=== PATIENT | female | born 1990 | race Asian ===

== ENCOUNTER 2018-10-08 10:37 | Emergency (ER) | payer SELFPAY ==
--- OUTSIDE RECORDS SUMMARY | 2018-10-08 10:43 | XMS REPORT ---
Author Author ALIX JUNIOR Organization [facility] Address [address] [place] [address] Care Team Providers Care Waiter/Waitress Cafeteria Name Role Phone ALIX JUNIOR Unavailable PROBLEMS Unknown Problems ALLERGIES Substance Reaction Event Type Date Status Penicillin V Potassium Unknown Drug Allergy Jan, Active ENCOUNTERS Encounter Location Date Diagnosis [place] [address] [address] Mar, [place] [address] [address] Mar, [place] [address] [address] Mar, test positive Z32.01 [place] [address] [place] [id number] [place] [address] 39489- 8210 14 Feb, 2017 Well woman exam Z01.419 and Encounter for Depo-Provera contraception Z30.42 [place] [address] [place] [id number] [place] [address] 40991- 1600 Jan, Acute midline low back pain without sciatica M54.5 and Fatigue, unspecified type R53.83 [facility] [address] [place] [address] [id number] [place] [address]38 -8736 15 Aug, 2016 Pharyngitis due to other organism J02.8 [place] [address] [place] [id number] [place] [address] 34452- 2361 02 Jun, 2016 Ocular contusion, right, initial encounter S05.11XA [place] [address] [place] [address] 36218- 4206 20 Mar, 2016 Nexplanon removal Z30.49 and Encounter for initial prescription of contraceptive pills Z30.011 IMMUNIZATIONS No Known Immunizations SOCIAL HISTORY Never Assessed REASON FOR VISIT Back/abdominal pain--DBennettRN, lower back and abd x1 month PLAN OF CARE Activity Details Follow Up needs WWE Reason: VITAL SIGNS Height 66 in 2017-02-16 Weight 172 lbs 2017-02-16 Temperature 98.8 degrees Fahrenheit 2017-02-16 Heart Rate 80 bpm 2017-02-16 Respiratory Rate 20 2017-02-16 BMI 27.76 kg/m2 2017-02-16 Blood pressure systolic 102 mmHg 2017-02-16 Blood pressure diastolic 64 mmHg 2017-02-16 MEDICATIONS No Known Medications RESULTS No Results PROCEDURES No Known procedures INSTRUCTIONS MEDICATIONS ADMINISTERED No Known Medications MEDICAL (GENERAL) HISTORY Type Description Date Medical History HSV-1 Surgical History tubal 2012 Surgical History Clef Palate repair 2 months of age Surgical History 2010 Hospitalization History Surgery Hospitalization History Mental Health Stay In [facility] 2011
--- OUTSIDE RECORDS SUMMARY | 2018-10-08 10:43 | XMS REPORT ---
Author Author IGLESIA BLANCAS [facility] Address Unknown Care Team Providers Care Humid System Operator Name Role Phone IGLESIA BLANCAS Unavailable PROBLEMS Unknown Problems ALLERGIES No Information ENCOUNTERS Encounter Location Date Diagnosis [facility] [address] [place] [id number] [place] [phone] Oct, [facility] [address] [id number] Oct, Dental examination Z01.20 [place] [address] [address]763 Oct, [facility] [address] [address]776[address]663 11 Mar, 2017 [facility] [address] [place] [id number] [place] [address] 36045- 9534 07 Mar, 2017 [place] [address] [address]99- 2325 06 Mar, 2017 test positive Z32.01 [place] [address] 05288- 6265 14 Feb, 2017 Well woman exam Z01.419 and Encounter for Depo-Provera contraception Z30.42 [facility] [address] [place] [id number] [place] [address] 55640- 4630 Jan, Acute midline low back pain without sciatica M54.5 and Fatigue, unspecified type R53.83 [facility] [id number] [place] [address] 70262 -7350 15 Aug, 2016 Pharyngitis due to other organism J02.8 [place] [address] [address]11- [address]674 Jun, Ocular contusion, right, initial encounter [facility].11XA [facility] [address] [facility] [id number] [place] [address] Mar, Nexplanon removal Z30.49 and Encounter for initial prescription of contraceptive pills Z30.011 IMMUNIZATIONS No Known Immunizations SOCIAL HISTORY Never Assessed REASON FOR VISIT PLAN OF CARE VITAL SIGNS MEDICATIONS Unknown Medications RESULTS No Results PROCEDURES No Known procedures INSTRUCTIONS MEDICATIONS ADMINISTERED No Known Medications MEDICAL (GENERAL) HISTORY Type Description Date Medical History HSV-1 Medical History Due 12/02/17 Surgical History tubal 2012 Surgical History Clef Palate repair 2 months of age Surgical History 2010 Hospitalization History Surgery Hospitalization History Mental Health Stay In [facility] 2011
--- OUTSIDE RECORDS SUMMARY | 2018-10-08 10:43 | XMS REPORT ---
Author Author IGLESIA BLANCAS [facility] Address Unknown Care Team Providers Care Zigzag Elastic Attacher Name Role Phone IGLESIA BLANCAS Unavailable PROBLEMS Unknown Problems ALLERGIES Substance Reaction Event Type Date Status Penicillin V Potassium Unknown Drug Allergy Oct, Active ENCOUNTERS Encounter Location Date Diagnosis [facility] [id number] [id number] Oct, [facility] [address] [address] [id number] [place] [id number] Oct, Dental examination Z01.20 [facility] [address] [id number] [place] [address] 18678- 4656 Oct, [facility] [address] [id number] [place] [address]369- 1986 11 Mar, 2017 [facility] [address] [id number] [place] [address] 65417- 0407 Mar, [facility] [address] [place] [address] [id number] [place] [address] 67932- 9355 Mar, test positive Z32.01 [facility] [address] [place] [id number] [place] [address] 97390- 1196 Feb, Well woman exam Z01.419 and Encounter for Depo-Provera contraception Z30.42 [facility] [address] [place] [address] 31429- 8767 Jan, Acute midline low back pain without sciatica M54.5 and Fatigue, unspecified type R53.83 [facility] [address] [id number] [place] [address] 20165 -9594 15 Aug, 2016 Pharyngitis due to other organism J02.8 [facility] [address], [place] [address] 02 Jun, 2016 Ocular contusion, right, initial encounter S05.11XA [facility] [address] [facility] [id number] Mar, Nexplanon removal Z30.49 and Encounter for initial prescription of contraceptive pills Z30.011 IMMUNIZATIONS No Known Immunizations SOCIAL HISTORY Never Assessed REASON FOR VISIT abscess PLAN OF CARE Activity Details Follow Up prn Reason:6 month recall VITAL SIGNS Height 66 in 2017-11-17 Blood pressure systolic 130 mmHg 2017-11-17 Blood pressure diastolic 70 mmHg 2017-11-17 MEDICATIONS Medication Instructions Dosage Frequency Start Date End Date Duration Status Active Clindamycin HCl 150 MG Orally every 6 hrs 2 capsules 6h 7 days Active Ortho Tri-Cyclen (28) 0.18/0.215/0.25 MG-35 MCG Orally Once a day 1 tablet 24h 20 Mar, 2016 28 day(s) Not-Taking RESULTS No Results PROCEDURES Procedure Date Ordered Result Body Site LTD ORAL EVALUATION - PROBLEM FOCUS November 17, 2017 INTRAORL-PERIAPICAL 1 FILM [id number] November 17, 2017 INSTRUCTIONS MEDICATIONS ADMINISTERED No Known Medications MEDICAL (GENERAL) HISTORY Type Description Date Medical History HSV-1 Medical History Due 12/02/17 Surgical History tubal 2012 Surgical History Clef Palate repair 2 months of age Surgical History 2010 Hospitalization History Surgery Hospitalization History Mental Health Stay In [facility] 2011
--- OUTSIDE RECORDS SUMMARY | 2018-10-08 10:43 | XMS REPORT ---
Author NICOLE Sands [facility] Address [address] [place] [address] Care Team Providers Care Kiln Repairer Name Role Phone TAPANNICOLE Unavailable PROBLEMS Unknown Problems ALLERGIES No Information ENCOUNTERS Encounter Location Date Diagnosis [facility] [id number] [place] [id number] Oct, [facility] [address] [id number] Oct, Dental examination Z01.20 [place] [address] [address] Oct, [facility] [address] [address] Mar, [facility] [address] [place] [id number] [place] [address] 84380- 2328 Mar, [place] [address] [place] [id number] [place] [address] 55188- 1042 Mar, test positive Z32.01 [place] [address] [place] [id number] [place] [address] 42523- 5435 14 Feb, 2017 Well woman exam Z01.419 and Encounter for Depo-Provera contraception Z30.42 [facility] [address] [place] [id number] [place] [address] 40911- 9113 Jan, Acute midline low back pain without sciatica M54.5 and Fatigue, unspecified type R53.83 [facility] [address] [place] [id number] [place] [address] 21080 -5220 15 Aug, 2016 Pharyngitis due to other organism J02.8 [facility] [address] [place] [address] 66435- 1776 02 Jun, 2016 Ocular contusion, right, initial encounter S05.11XA [facility] [address] [facility] [id number] [place] [address] Mar, Nexplanon removal Z30.49 and Encounter for initial prescription of contraceptive pills Z30.011 IMMUNIZATIONS No Known Immunizations SOCIAL HISTORY Never Assessed REASON FOR VISIT Requests return call PLAN OF CARE VITAL SIGNS MEDICATIONS Unknown Medications RESULTS No Results PROCEDURES No Known procedures INSTRUCTIONS MEDICATIONS ADMINISTERED No Known Medications MEDICAL (GENERAL) HISTORY Type Description Date Medical History HSV-1 Medical History Due 12/02/17 Surgical History tubal 2012 Surgical History Clef Palate repair 2 months of age Surgical History 2010 Hospitalization History Surgery Hospitalization History Mental Health Stay In [facility] 2011
--- OUTSIDE RECORDS SUMMARY | 2018-10-08 10:44 | XMS REPORT ---
Author Author YELENA AN [facility] Address [address] [place] [address] Care Team Providers Care Test Lead Application Testing Name Role Phone AN KIRK Unavailable PROBLEMS Unknown Problems ALLERGIES Substance Reaction Event Type Date Status Penicillin V Potassium Unknown Drug Allergy Mar, Active ENCOUNTERS Encounter Location Date Diagnosis [facility] [address] [id number] Oct, Dental examination Z01.20 [place] [address] [place] [id number] [place] [address] 44856- 2159 Oct, [facility] [address] [address] 11 Mar, 2017 [facility] [address] [address] [id number] [place] [address] 81147- 5651 07 Mar, [address] [address]30- 8540 06 Mar, 2017 test positive Z32.[address] 6[address]69- 7263 14 Feb, 2017 Well woman exam Z01.419 and Encounter for Depo-Provera contraception Z30.42 [facility] [address] [place] [id number] [place] [address] 09409- 6603 Jan, Acute midline low back pain without sciatica M54.5 and Fatigue, unspecified type R53.83 [facility] [id number] [place] [address] 20532 -4254 15 Aug, 2016 Pharyngitis due to other organism J02.8 [facility] [address] [address]643- 6156 Jun, Ocular contusion, right, initial encounter S05.11XA [facility] [address] [facility] [id number] [place] [address] Mar, Nexplanon removal Z30.49 and Encounter for initial prescription of contraceptive pills Z30.011 IMMUNIZATIONS No Known Immunizations SOCIAL HISTORY Never Assessed REASON FOR VISIT OB Flowsheet History--tcuppettRN PLAN OF CARE VITAL SIGNS MEDICATIONS Unknown Medications RESULTS No Results PROCEDURES No Known procedures INSTRUCTIONS MEDICATIONS ADMINISTERED No Known Medications MEDICAL (GENERAL) HISTORY Type Description Date Medical History HSV-1 Medical History Due 12/02/17 Surgical History tubal 2012 Surgical History Clef Palate repair 2 months of age Surgical History 2010 Hospitalization History Surgery Hospitalization History Mental Health Stay In [facility] 2011
--- OUTSIDE RECORDS SUMMARY | 2018-10-08 10:44 | XMS REPORT ---
Author Author RAFY GENTILE [facility] Address [address] [place] [address] Care Team Providers Care Private Investigator Name Role Phone RAFY GENTILE Unavailable PROBLEMS Unknown Problems ALLERGIES Substance Reaction Event Type Date Status Penicillin V Potassium Unknown Drug Allergy Aug, Active SOCIAL HISTORY Never Assessed PLAN OF CARE VITAL SIGNS Height 66 in 2016-09-14 Weight 173.0 lbs 2016-09-14 Temperature 97.0 degrees Fahrenheit 2016-09-14 Heart Rate 78 bpm 2016-09-14 Respiratory Rate 18 2016-09-14 BMI 27.92 kg/m2 2016-09-14 Blood pressure systolic 114 mmHg 2016-09-14 Blood pressure diastolic 68 mmHg 2016-09-14 MEDICATIONS Medication Instructions Dosage Frequency Start Date End Date Duration Status Ortho Tri-Cyclen (28) 0.18/0.215/0.25 MG-35 MCG Orally Once a day 1 tablet 24h 20 Mar, 2016 28 day(s) Active Bactrim DS 800-160 MG Orally Twice a day 1 tablet 12h Aug,Aug 10 day(s) Active RESULTS No Results PROCEDURES No Known procedures IMMUNIZATIONS No Known Immunizations MEDICAL (GENERAL) HISTORY Type Description Date Medical History HSV-1 Surgical History tubal 2012 Surgical History Clef Palate repair 2 months of age Surgical History 2010 Hospitalization History Surgery Hospitalization History Mental Health Stay In [facility] 2011
--- OUTSIDE RECORDS SUMMARY | 2018-10-08 10:44 | XMS REPORT ---
Author Author NICOLE PHELAN [facility] Address [address] [place] [address] Care Team Providers Care Ibm Websphere Commerce Consultant Name Role Phone PHELAN NICOLE Unavailable PROBLEMS Unknown Problems ALLERGIES No Information ENCOUNTERS Encounter Location Date Diagnosis [facility] [address] [place] [id number] [place] [id number] Oct, Dental examination Z01.20 [place] [address] [address] Oct, [place] [address] [address]- 264[address] 11 Mar, 2017 [place] [address] 194[address]- 1194 Mar, [place] [address] [address]- 5745 06 Mar, 2017 test positive Z32.01 [place] [address] [place] [id number] [place] [address] 57630- 3518 14 Feb, 2017 Well woman exam Z01.419 and Encounter for Depo-Provera contraception Z30.42 [place] [id number] [place] [address] 48199- 3320 Jan, Acute midline low back pain without sciatica M54.5 and Fatigue, unspecified type R53.83 [facility] [address] [address]324 15 Aug, 2016 Pharyngitis due to other organism J02.8 [place] [address] [place] [id number] [place] [address] 52405- 7208 02 Jun, 2016 Ocular contusion, right, initial encounter S05.11XA [place] [address] N [facility] [id number] [place] [address] 20 Mar, 2016 Nexplanon removal Z30.49 and Encounter for initial prescription of contraceptive pills Z30.011 IMMUNIZATIONS No Known Immunizations SOCIAL HISTORY Never Assessed REASON FOR VISIT concern PLAN OF CARE VITAL SIGNS MEDICATIONS Unknown Medications RESULTS No Results PROCEDURES No Known procedures INSTRUCTIONS MEDICATIONS ADMINISTERED No Known Medications MEDICAL (GENERAL) HISTORY Type Description Date Medical History HSV-1 Medical History Due 12/02/17 Surgical History tubal 2012 Surgical History Clef Palate repair 2 months of age Surgical History 2011 Hospitalization History Surgery Hospitalization History Mental Health Stay In [facility] 2011
--- OUTSIDE RECORDS SUMMARY | 2018-10-08 10:44 | XMS REPORT ---
Author Author AN KIRK Organization [facility] Address [address] [place] [address] Care Team Providers Care Map Editor Name Role Phone YELENAMAGGIE SANTANAHANY Unavailable PROBLEMS Type Condition ICD9-CM Code [id number] Code Onset Dates Condition Status SNOMED Code Assessment Nexplanon removal Z30.49 Mar, Active [id number] Assessment Encounter for initial prescription of contraceptive pills Z30.011 Mar, Active [id number] ALLERGIES Substance Reaction Event Type Date Status Penicillin V Potassium Unknown Drug Allergy Mar, Active SOCIAL HISTORY No smoking Hx information available PLAN OF CARE VITAL SIGNS Height 66 in 2016-04-19 Weight 168 lbs 2016-04-19 Heart Rate 66 bpm 2016-04-19 Respiratory Rate 20 2016-04-19 BMI 27.11 kg/m2 2016-04-19 Blood pressure systolic 108 mmHg 2016-04-19 Blood pressure diastolic 60 mmHg 2016-04-19 MEDICATIONS Medication Instructions Dosage Frequency Start Date End Date Duration Status Ortho Tri-Cyclen (28) 0.18/0.215/0.25 MG-35 MCG Orally Once a day 1 tablet 24h Mar, 28 day(s) Active RESULTS Name Result Date Reference Range TEST, URINE (IN HOUSE) 2016-04-19 RESULTS neg Lot # [id number] Control + Exp date 10/15 PROCEDURES Procedure Date Ordered Related Diagnosis Body Site NEXPLANON REMOVAL 2016-04-19 N/A URINE TEST Apr 19, 2016 REMOVE DRUG IMPLANT DEVICE Apr 19, 2016 IMMUNIZATIONS No Known Immunizations
== END 2018-10-08 10:40 | disposition left against medical advice (07) ==
LOC: ER FS 10:38
DX: R51 Headache (principal); J02.9 Acute pharyngitis, unspecified

== ENCOUNTER 2019-03-05 09:31 | Emergency (ER) | payer BC, OTHER ==
[~2019-03-05] VITALS: Ht 167.6 cm; Wt 81.2 kg
--- OUTSIDE RECORDS SUMMARY | 2019-03-05 09:37 | XMS REPORT ---
Author Author JUANJO SIDDIQUI Organization [facility] Address [address] [place] [address] Care Team Providers Care Safety Lamp Keeper Name Role Phone JUANJO SIDDIQUI Unavailable PROBLEMS Type Condition ICD9-CM Code [id number] Code Onset Dates Condition Status SNOMED Code Problem Rhinitis, unspecified type J31.0 Active 56713842 Problem Morbid obesity E66.01 Active 052896931 Problem History of ectopic Z87.59 Active [id number] ALLERGIES No Information ENCOUNTERS Encounter Location Date Diagnosis [facility] [address] [place] [address] Oct, Lower abdominal pain R10.[address] [address] Oct, [address] [address] Oct, [address] [address] Oct, [address] [address] Oct, Vaginal discharge N89.[address] [address] Sep, Acute pharyngitis, unspecified etiology J02.9 and Acute URI J06.[address] [address] Sep, Acute URI J06.9 [facility] [address] [place] [address] Sep, Nasopharyngitis J00 and Cough R05 [address] [address] Sep, [address] [address] Aug, Morbid obesity E66.[address] [address] Aug, Encounter for initial prescription of contraceptive pills Z30.011 [facility] [address] [address] Aug, [address] [address] Aug, Rhinitis, unspecified type J31.0 and Dyspnea, unspecified type R06.00 [place] [address] [address] Jul, [facility] [address] [id number] Oct, [facility] [address] [id number] Oct, Dental examination Z01.20 [place] [address] [address] Oct, [facility] [address] [address] Mar, [facility] [address] [address] Mar, [facility] [address] [place] [id number] [place] [address] 06 Mar, 2017 test positive Z32.01 [facility] [address] [address] 14 Feb, 2017 Well woman exam Z01.419 and Encounter for Depo-Provera contraception Z30.42 [place] [address] [address] Jan, Acute midline low back pain without sciatica M54.5 and Fatigue, unspecified type R53.83 [facility] [address] [id number] [place] [address] Aug, Pharyngitis due to other organism J02.8 [facility] [address] [facility] [id number] [place] [address] 02 Jun, 2016 Ocular contusion, right, initial encounter S05.11XA [facility] [address] [facility] [id number] [place] [address] 20 Mar, 2016 Nexplanon removal Z30.49 and Encounter for initial prescription of contraceptive pills Z30.011 IMMUNIZATIONS No Known Immunizations SOCIAL HISTORY Never Assessed REASON FOR VISIT lvm PLAN OF CARE VITAL SIGNS MEDICATIONS No Known Medications RESULTS No Results PROCEDURES No Known procedures INSTRUCTIONS MEDICATIONS ADMINISTERED No Known Medications MEDICAL (GENERAL) HISTORY Type Description Date Medical History History of ectopic Medical History HSV-1 infection Medical History Osteoarthritis Surgical History tubal 2012 Surgical History Clef Palate repair 2 months of age Surgical History 2011 Hospitalization History Surgery Hospitalization History Mental Health Stay In [facility] 2011
--- OUTSIDE RECORDS SUMMARY | 2019-03-05 09:38 | XMS REPORT | Continuity of Care Document ---
Author Organization Unknown Address Unknown Phone Unavailable Allergies There is no data. Medications There is no data. Problems There is no data. Procedures There is no data. Results Test Result Range PAP TEST, HPV IF ASCUS - 03/13/17 00:00 DIAGNOSIS: NRG Specimen adequacy: NRG Clinician provided ICD10: NRG Performed by: NRG . . NRG Note: NRG . NRG GC/CHLAMYDIA (SWAB OR URINE)-RAPID - 10/29/18 19:00 CHLAMYDIA TRACHOMATIS RNA, TMA NOT DETECTED NOT DETECTED NEISSERIA GONORRHOEAE RNA, TMA NOT DETECTED NOT DETECTED COMMENT NRG LIPID PANEL - 02/13/19 11:36 CHOLESTEROL, TOTAL 156 mg/dL <200 HDL CHOLESTEROL 53 mg/dL >50 TRIGLYCERIDES 142 mg/dL <150 LDL-CHOLESTEROL 79 mg/dL (calc) NRG CHOL/HDLC RATIO 2.9 (calc) <5.0 NON HDL CHOLESTEROL 103 mg/dL (calc) <130 GLUCOSE, SERUM - 02/13/19 11:36 GLUCOSE 96 mg/dL 65-99 Encounters ACCT No. Visit Date/Time Discharge Status Pt. Type Provider Facility Loc./Unit Complaint [id number] 02/13/2019 11:30:00 02/13/2019 23:59:59 CLS Outpatient JUANJO SIDDIQUI [facility] [id number] 02/13/2019 11:30:00 Document Registration [id number] 10/29/2018 13:40:00 Document Registration [id number] 03/13/2017 15:00:00 Document Registration
--- NOTE | 2019-03-05 10:02 | ED Integumentary General ---
General Chief Complaint: Skin/Wound Problems Stated Complaint: SPIDER BITE; NAUSEA/VOMITING; RASH; WOUND Source: patient, RN notes reviewed Exam Limitations: no limitations History of Present Illness Date Seen by Provider: Mar 05, 2019 Time Seen by Provider: 10:02 Initial Comments Patient presents c/ c/o worsening right foot pain and swelling p/ being bit by something Monday AM @ her home. Seen in ED in [place], [place] on Monday and placed on Doxy, Prednisone, and Hydroxyzine, which hasn't helped. Reports seeing her PCP yesterday who apparently recommend continuing her current meds and coming here if her symptoms worsen. Primary complaint this AM is pain not being controlled c/ Tylenol. States her tetanus is UTD. Timing/Duration: constant, getting worse, other (3 days ago) Location: feet (right) Possible Cause: insect bite (suspected), insect sting (suspected) Modifying Factors: improves with other (none) Associated Symptoms: denies symptoms (x/ as noted.), rash, swelling/mass/lumps Allergies and Home Medications Allergies Coded Allergies: Penicillins (Verified Allergy, Mild, rash, 03/05/19) Home Medications Clobetasol Propionate 15 Gm Oint...g., 1 APPLIC TP BID Prescribed by: RAFY BYRNE on 03/05/19 1122 Tramadol HCl 50 Mg Tablet, 50-100 MG PO Q6H PRN for BREAKTHROUGH PAIN Prescribed by: RAFY BYRNE on 03/05/19 1122 Patient Home Medication List Home Medication List Reviewed: Yes Review of Systems Review of Systems Constitutional: see HPI : No Musculoskeletal: see HPI, other (right foot pain/swelling) Skin: see HPI, other (right foot redness) All Other Systems Reviewed Negative Unless Noted: Yes (Negative excepted noted.) Physical Exam Vital Signs Vital Signs - First Documented 03/05/19 09:35 Temp 98.3 Pulse 78 Resp 18 B/P (MAP) 120/59 (79) Pulse Ox 99 O2 Delivery Room Air Capillary Refill : General Appearance: WD/WN, no apparent distress Cardiovascular: regular rate, rhythm Respiratory: no respiratory distress Extremities: inflammation (right foot), pedal edema (right foot), swelling (right foot), other (tenderness right foot) Neurologic/Psychiatric: no motor/sensory deficits, alert, normal mood/affect, oriented x 3 Skin: warm/dry, ecchymosis (right foot laterally just under and posterior to her lateral malleoli) Skin Problem Location: lower extremities (right foot) Skin Problem Character: erythema (right foot), swelling (right foot), tenderness (right foot), other (some darkening in center of the redness/ecchy mosis raising concern that this could well be a Brown spider bite. ) Progress/Results/Core Measures Results/Orders Lab Results Laboratory Tests Test 03/05/19 10:10 03/05/19 10:15 Range/Units Urine Color YELLOW Urine Clarity CLEAR Urine pH 7 5-9 Urine Specific [place] <=1.005 1.016-1.022 Urine Protein NEGATIVE NEGATIVE Urine Glucose (UA) NEGATIVE NEGATIVE Urine Ketones NEGATIVE NEGATIVE Urine Nitrite NEGATIVE NEGATIVE Urine Bilirubin NEGATIVE NEGATIVE Urine Urobilinogen 0.2 NORMAL MG/DL Urine Leukocyte Esterase NEGATIVE NEGATIVE Urine RBC (Auto) NEGATIVE NEGATIVE Urine RBC /HPF Urine WBC /HPF Urine Squamous Epithelial Cells 25-50 H /HPF Urine Crystals NONE /LPF Urine Bacteria FEW H /HPF Urine Casts NONE /LPF Urine Mucus NEGATIVE /LPF Urine Culture Indicated NO Urine Test NEGATIVE NEGATIVE White Blood Count 5.8 4.3-11.0 10^3/uL Red Blood Count 3.97 L 4.35-5.85 10^6/uL Hemoglobin 12.0 11.5-16.0 G/DL Hematocrit 36 35-52 % Mean Corpuscular Volume 91 80-99 FL Mean Corpuscular Hemoglobin 30 25-34 PG Mean Corpuscular Hemoglobin Concent 33 32-36 G/DL Red Cell Distribution Width 11.9 10.0-14.5 % Platelet Count 238 130-400 10^3/uL Mean Platelet Volume 9.8 7.4-10.4 FL Neutrophils (%) (Auto) 68 42-75 % Lymphocytes (%) (Auto) 16 12-44 % Monocytes (%) (Auto) 5 0-12 % Eosinophils (%) (Auto) 11 H 0-10 % Basophils (%) (Auto) 0 0-10 % Neutrophils # (Auto) 3.9 1.8-7.8 X 10^3 Lymphocytes # (Auto) 0.9 L 1.0-4.0 X 10^3 Monocytes # (Auto) 0.3 0.0-1.0 X 10^3 Eosinophils # (Auto) 0.7 H 0.0-0.3 10^3/uL Basophils # (Auto) 0.0 0.0-0.1 10^3/uL Sodium Level 140 135-145 MMOL/L Potassium Level 3.3 L 3.6-5.0 MMOL/L Chloride Level 100 98-107 MMOL/L Carbon Dioxide Level 27 21-32 MMOL/L Anion Gap 13 5-14 MMOL/L Blood Urea Nitrogen 10 7-18 MG/DL Creatinine 0.72 0.60-1.30 MG/DL Estimat Glomerular Filtration Rate > 60 BUN/Creatinine Ratio 14 Glucose Level 126 H 70-105 MG/DL Calcium Level 8.9 8.5-10.1 MG/DL Corrected Calcium 9.0 8.5-10.1 MG/DL Total Bilirubin 0.4 0.1-1.0 MG/DL Aspartate Amino Transf (AST/SGOT) 19 5-34 U/L Alanine Aminotransferase (ALT/SGPT) 18 0-55 U/L Alkaline Phosphatase 80 40-136 U/L Total Protein 6.6 6.4-8.2 GM/DL Albumin 3.9 3.2-4.5 GM/DL My Orders Orders - RAFY BYRNE DO Ed Iv/Invasive Line Start (03/05/19 10:07) Cbc With Automated Diff (03/05/19 10:07) Comprehensive Metabolic Panel (03/05/19 10:07) Hcg,Qualitative Urine (03/05/19 10:07) Tick Panel With Lyme Eia (03/05/19 10:07) Ua Culture If Indicated (03/05/19 10:07) Foot 3 View Right (03/05/19 10:49) Dexamethasone Injection (Decadron Inject (03/05/19 11:30) Medications Given in ED Current Medications Medications Dose Ordered Sig/Erasto Route Start Time Stop Time Status Last Admin Dose Admin Dexamethasone Sodium Phosphate 15 mg ONCE ONCE IM 03/05/19 11:30 03/05/19 11:31 DC 03/05/19 11:26 15 MG Vital Signs/I&O 03/05/19 09:35 Temp 98.3 Pulse 78 Resp 18 B/P (MAP) 120/59 (79) Pulse Ox 99 O2 Delivery Room Air Diagnostic Imaging Diagonstic Imaging: Xray Plain Films/CT/US/NM/MRI: other (right foot-unremarkable) Departure Impression Primary Impression: Spider bite allergy, current reaction Disposition: 01 HOME, SELF-CARE Condition: Stable Departure-Patient Inst. Decision time for Depature: 11:18 Referrals: JUANJO SIDDIQUI MD (PCP/Family) Primary Care Physician Patient Instructions: Spider Bites Add. Discharge Instructions: CONTINUE 400 mg OF TYLENOL EVERY 6 HOURS WELL 1000 mg OF TYLENOL EVERY 6 HOURS FOR PAIN. DO NOT EXCEED 4000 mg OF TYLENOL IN A 24 HOUR PERIOD. MAY CONTINUE THE ANTIBIOTIC AND HYDROXYZINE PRESCRIBED. RECOMMEND FOLLOW UP EVALUATION BY DR. VINCENT GARCIA IF CONDITION WORSENS. BELIEVE HE HAS OFFICE HOURS IN THE [facility] WEEKLY. All discharge instructions reviewed with patient and/or family. Voiced understanding. Scripts Tramadol HCl (Tramadol HCl) 50 Mg Tablet 50-100 MG PO Q6H PRN for BREAKTHROUGH PAIN, #20 TAB 0 Refills Prov: RAFY BYRNE DO 03/05/19 Clobetasol Propionate (Temovate) 15 Gm Oint...g. 1 APPLIC TP BID, #1 TUBE 0 Refills Prov: RAFY BYRNE DO 03/05/19 RAFY BYRNE DO Mar 05, 2019 10:02
[2019-03-05 10:38] LABS: BASOPHILS % (AUTO) 0 % (0-10); EOSINOPHILS # (AUTO) 0.7 10^3/uL (0.0-0.3); EOSINOPHILS % (AUTO) 11 % (0-10); HEMATOCRIT 36 % (35-52); LYMPHOCYTES # (AUTO) 0.9 X 10^3 (1.0-4.0); LYMPHOCYTES % (AUTO) 16 % (12-44); MEAN CORPUSCULAR HEMOGLOBIN 30 PG (25-34); MEAN CORPUSCULAR HGB CONC 33 G/DL (32-36); MEAN CORPUSCULAR VOLUME 91 FL (80-99); MEAN PLATELET VOLUME 9.8 FL (7.4-10.4); MONOCYTES # (AUTO) 0.3 X 10^3 (0.0-1.0); MONOCYTES % (AUTO) 5 % (0-12); NEUTROPHILS # (AUTO) 3.9 X 10^3 (1.8-7.8); NEUTROPHILS % (AUTO) 68 % (42-75); PLATELET COUNT 238 10^3/uL (130-400); RED CELL DISTRIBUTION WIDTH 11.9 % (10.0-14.5); WHITE BLOOD COUNT 5.8 10^3/uL (4.3-11.0)
[2019-03-05 10:49] LABS: CARBON DIOXIDE 27 MMOL/L (21-32); CHLORIDE 100 MMOL/L (98-107); POTASSIUM 3.3 MMOL/L (3.6-5.0); SODIUM 140 MMOL/L (135-145)
[2019-03-05 10:50] LABS: ALANINE AMINOTRANSFERASE 18 U/L (0-55); ALBUMIN 3.9 GM/DL (3.2-4.5); ALKALINE PHOSPHATASE 80 U/L (40-136); BILIRUBIN,TOTAL 0.4 MG/DL (0.1-1.0); BUN/CREATININE RATIO 14; CALCIUM 8.9 MG/DL (8.5-10.1); CREATININE SERUM 0.72 MG/DL (0.60-1.30); GFR ESTIMATED > 60; GLUCOSE 126 MG/DL (70-105); TOTAL PROTEIN 6.6 GM/DL (6.4-8.2)
[2019-03-05 11:03] LABS: CLARITY,URINE CLEAR; COLOR,URINE YELLOW; PH,URINE 7 (5-9)
[2019-03-05 11:04] LABS: BACTERIA,URINE FEW /HPF; BILIRUBIN,URINE NEGATIVE (NEGATIVE); GLUCOSE, URINE (UA) NEGATIVE (NEGATIVE); KETONES,URINE NEGATIVE (NEGATIVE); LEUKOCYTE ESTERASE ,URINE NEGATIVE (NEGATIVE); NITRITE,URINE NEGATIVE (NEGATIVE); PROTEIN,URINE NEGATIVE (NEGATIVE); SQUAMOUS EPITHELIAL CELL,UR 25-50 /HPF; UROBILINOGEN,URINE 0.2 MG/DL (NORMAL)
[2019-03-05] MEDS ORDERED: ONDANSETRON 4 MG/2 ML (SDV) Z0FRAN IVP ONE (11:15)
[2019-03-05] MEDS ORDERED: CLOB15OI15 TP (11:22)
[2019-03-05] MEDS ORDERED: TRAM50TA2 PO (11:22)
--- NOTE | 2019-03-05 11:25 | Diagnostic Imaging Report ---
INDICATION: Presumed insect bite to right foot several days ago. Over the past 2 days has become increasingly swollen and discolored.. TECHNIQUE: 3 views of the right foot CORRELATION STUDY: None FINDINGS: The osseous structures of the foot are intact. Joint spaces are maintained. Alignment anatomic. No bony destructive change. Soft tissue swelling is noted over the foot particularly over the dorsal and hind aspect. IMPRESSION: 1. Negative for acute findings of the foot. Dictated by: Dictated on workstation # [id number]
[2019-03-05] MEDS ORDERED: DEXAMETHASONE 10 MG/ML (DECADRON) 1 ML VIAL IM ONE (11:30)
[2019-03-05 11:50] VITALS: BP 120/59
== END 2019-03-05 11:40 | disposition home or self-care (01) ==
LOC: EDUNIT# 09:31 → ER FS 09:33
DX: T63.301A Toxic effect of unspecified spider venom, accidental (unintentional), initial encounter (principal); Z88.0 Allergy status to penicillin
CPT/HCPCS: 36415; 73630; 80053; 81000; 84703; 85025; 86618; 86666; 86668; 86757

== ENCOUNTER 2019-03-20 00:11 | Emergency (ER) | payer BC ==
[~2019-03-20] VITALS: Ht 167.6 cm; Wt 81.2 kg
[~2019-03-20 00:11] MED LIST: CLOB15OI15 TP; TRAM50TA2 PO
[2019-03-20 00:45] VITALS: BP 129/68
--- NOTE | 2019-03-20 00:49 | ED General ---
General Chief Complaint: Fever-Adult/Adol Stated Complaint: SPIDER BITE, FEVER, BODY ACHES Nursing Triage Note: Patient states that she began feeling ill yesterday around 4pm. Patient was hospitalized for a brown recluse spider bite 03/02/19. Patient is concerned that her bite is infected. The bite is on the right ankle. It is dark in color, baseball sized and there does not appear to be any drainage. The right foot is slightly swollen. Patient is also complaining of body aches. Patient did see her practitioner yesterday about the same issue. Nursing Sepsis Screen: Possible Sepsis Risk Source of Information: Patient History of Present Illness Date Seen by Provider: Mar 20, 2019 Time Seen by Provider: 00:30 Initial Comments Patient is a 28-year-old female who presents with reported fever yesterday and diffuse body aches and arthralgias this evening. Patient also is concerned about right ankle brown recluse spider bite which occurred on 03/02/19. Patient has been hospitalized for the spider bite completed a course of antibiotics and is scheduled to follow up with the general surgeon for further evaluation. Patient was evaluated by her PCP earlier yesterday for body aches and fevers and was not given a diagnosis. Patient present to the ED concerned that she feels as though something is wrong. Denies headache, cough, sore throat, neck pain, chest pain, shortness of breath,, abdominal pain, dysuria and rash. No other acute symptoms or complaints. Timing/Duration: 24 Hours Severity: Mild Allergies and Home Medications Allergies Coded Allergies: doxycycline (Verified Allergy, Intermediate, Hives, 03/20/19) Penicillins (Verified Allergy, Mild, rash, 03/05/19) Home Medications Clobetasol Propionate 15 Gm Oint...g., 1 APPLIC TP BID Prescribed by: RAFY BYRNE on 03/05/19 1122 Tramadol HCl 50 Mg Tablet, 50-100 MG PO Q6H PRN for BREAKTHROUGH PAIN Prescribed by: RAFY BYRNE on 03/05/19 1122 Patient Home Medication List Home Medication List Reviewed: Yes Review of Systems Review of Systems Constitutional: see HPI EENTM: no symptoms reported Respiratory: no symptoms reported Cardiovascular: no symptoms reported Gastrointestinal: no symptoms reported Genitourinary: no symptoms reported Musculoskeletal: no symptoms reported Skin: see HPI Psychiatric/Neurological: No Symptoms Reported Hematologic/Lymphatic: No Symptoms Reported Immunological/Allergic: no symptoms reported Past Bmynzur-Pwweqa-Iynlsk Hx Past Med/Social Hx: Reviewed Nursing Past Med/Soc Hx Patient Social History Alcohol Use: Denies Use Recreational Drug Use: No Smoking Status: Never a Smoker Type Used: Cigarettes 2nd Hand Smoke Exposure: No Recent Foreign Travel: No Contact w/Someone Who Travel: No Recent Infectious Disease Expo: No Recent Hopitalizations: No Physical Abuse: No Sexual Abuse: No Mistreated: No Fear: No Seasonal Allergies Seasonal Allergies: No Past Medical History Surgeries: Yes (ectopic with fallopian tube removal, reconstruction of cleft dilcia) Respiratory: No Cardiac: No Neurological: No Genitourinary: No Gastrointestinal: No Musculoskeletal: Yes (osteoarthritis) Endocrine: No HEENT: No Cancer: No Psychosocial: No Integumentary: No Physical Exam Vital Signs Vital Signs - First Documented 03/20/19 00:14 Temp 98.4 Pulse 93 Resp 18 B/P (MAP) 129/68 (88) Pulse Ox 98 O2 Delivery Room Air Capillary Refill : Less Than 3 Seconds Height, Weight, BMI Height: 5'6.00" Weight: 179lbs. 0oz. [id number]; BMI Method:Stated General Appearance: No Apparent Distress, WD/WN, Anxious Eyes: Bilateral Eye Normal Inspection, Bilateral Eye PERRL, Bilateral Eye EOMI HEENT: PERRL/EOMI, TMs Normal, Normal ENT Inspection, Pharynx Normal Neck: Full Range of Motion, Normal Inspection, Non Tender, Supple Respiratory: Chest Non Tender, Lungs Clear Cardiovascular: Regular Rate, Rhythm, No Edema Gastrointestinal: Normal Bowel Sounds, Non Tender, Soft Back: Normal Inspection, No CVA Tenderness Extremity: Normal Capillary Refill, Normal Inspection, Other (discolored healing wound right ankle wound consistent with) Neurologic/Psychiatric: Alert, Oriented x3 ( healing spider bite) Lymphatic: No Adenopathy Focused Exam Sepsis Stage: Ruled Out Progress/Results/Core Measures Suspected Sepsis Recent Fever Within 48 Hours: Yes Infection Criteria Present: Suspected New Infection New/Unexplained Altered Menta: No Sepsis Screen: Possible Sepsis Risk SIRS Temperature:98.4 Pulse: 93 Respiratory Rate: 18 Blood Pressure 129 /68 Mean: 88 Results/Orders Vital Signs/I&O 03/20/19 00:14 Temp 98.4 Pulse 93 Resp 18 B/P (MAP) 129/68 (88) Pulse Ox 98 O2 Delivery Room Air Capillary Refill : Less Than 3 Seconds Blood Pressure Mean: 88 Departure Communication (Admissions) Patient was normal exam and without source of infection and vital signs. Recommend supportive care watchful waking PCP follow-up. Return precautions reviewed. Patient verbalizes understanding. Discharge instructions prior to departure. Impression Primary Impression: Fever Additional Impression: Myalgia Disposition: HOME, SELF-CARE Condition: Improved Departure-Patient Inst. Add. Discharge Instructions: You were evaluated in the emergency department for body aches and reported fever . The cause of your symptoms has not been determined, but maybe related to a viral illness. Please increase fluids take ibuprofen or Tylenol for your symptoms and follow-up with your PCP for reevaluation and your surgeon for continued monitoring of your right ankle spider bite. If you develop new or worsening symptoms, please return to the emergency department. All discharge instructions reviewed with patient and/or family. Voiced understanding. BEST GARCIA DO Mar 20, 2019 00:49
[2019-03-22] MEDS ORDERED: DAPS25TA2 PO (08:59)
== END 2019-03-20 00:45 | disposition home or self-care (01) ==
LOC: EDUNIT# 00:11 → ER FS 00:12
DX: R50.9 Fever, unspecified (principal); M79.10 Myalgia, unspecified site; T63.301D Toxic effect of unspecified spider venom, accidental (unintentional), subsequent encounter; Z88.1 Allergy status to other antibiotic agents; Z88.0 Allergy status to penicillin
CPT/HCPCS: 99281

== ENCOUNTER 2019-03-22 08:04 | Emergency (ER) | payer BC | END 2019-03-22 09:20 | disposition home or self-care (01) | LOC: ER FS 08:04 ==

== ENCOUNTER 2019-03-27 12:40 | Outpatient (RCR) | payer BC ==
[2019-03-23] MEDS: cefTRIAXone 1,000 MG/SWFI 10 ML IV PUSH IV SCH ×2 (09:40)
[2019-03-23 10:00] VITALS: BP 101/64
[2019-03-24 09:11] VITALS: BP 106/64
[2019-03-24] MEDS: cefTRIAXone 1,000 MG/SWFI 10 ML IV PUSH IV SCH ×2 (09:17)
[2019-03-25 12:10] VITALS: BP 114/67
[2019-03-25] MEDS: cefTRIAXone 1,000 MG/2.86 ml vial (IM ONLY) IM SCH (12:10)
[2019-03-25] MEDS: LIDOCAINE 1% INJ 20 ML 20 ML VIAL INJ SCH (12:10)
[2019-03-26] MEDS: cefTRIAXone 1,000 MG/2.86 ml vial (IM ONLY) IM SCH (08:35)
[2019-03-26] MEDS: LIDOCAINE 1% INJ 20 ML 20 ML VIAL INJ SCH (08:35)
[2019-03-26 08:40] VITALS: BP 103/54
[~2019-03-27] VITALS: Ht 167.6 cm; Wt 81.2 kg
[~2019-03-27 12:40] MED LIST changes: +DAPS25TA2 PO; +WATER (STERILE) FOR INJECTION 10 ML ONE; +cefTRIAXone 1,000 MG IV (ROCEPHIN) VIAL ONE
[2019-03-27 12:55] VITALS: BP 117/78
== END 2019-03-27 12:58 | disposition home or self-care (01) ==
LOC: SDC 12:40
PROVIDERS: ATTEND Emergency Medicine
DX: L03.115 Cellulitis of right lower limb (principal)
CPT/HCPCS: 96372; 96374